=== PATIENT | female | born 1975 | race African-American/Black ===

== ENCOUNTER 2022-10-30 15:53 | Emergency (ER) | payer BC ==
[2022-10-30] MEDS ORDERED: Ketorolac Tromethamine 60 MG/2 ML VIAL ONE (16:09)
== END 2022-10-30 16:56 | disposition home or self-care (01) ==
LOC: BURERS 15:53
DX: M43.6 Torticollis (principal); E11.9 Type 2 diabetes mellitus without complications
CPT/HCPCS: 72125; 96372; J1885

== ENCOUNTER 2023-07-28 19:03 | Emergency (ER) | payer BC ==
[2023-07-28] MEDS ORDERED: Promethazine HCl 25 MG/ML VIAL ONE (19:45)
[2023-07-28 20:05] LABS: ALT (SGPT) 14 U/L (8-55); AST (SGOT) 20 U/L (5-34); Albumin 3.9 g/dL (3.5-5.0); Alkaline Phosphatase 72 U/L (40-110); Anion Gap 20 mmol/L (10-20); BUN (Urea Nitrogen) 5 mg/dL (7.0-18.7); Bilirubin, Total 0.4 mg/dL (0.2-1.2); Calc. Creatinine Clearance 0 mL/min (70-130); Calcium 8.8 mg/dL (7.8-10.44); Carbon Dioxide 17 mmol/L (22-29); Chloride 104 mmol/L (98-107); Estimated GFR 107; Globulin 3.5 g/dL (2.4-3.5); Glucose 80 mg/dL (70-105); Protein, Total 7.4 g/dL (6.0-8.3); Sodium 136 mmol/L (136-145)
== END 2023-07-28 20:50 | disposition home or self-care (01) ==
LOC: BURERS 19:03
DX: R11.2 Nausea with vomiting, unspecified (principal); R19.7 Diarrhea, unspecified; E11.9 Type 2 diabetes mellitus without complications
CPT/HCPCS: 80053; 96365; J2550

== ENCOUNTER 2023-09-27 20:45 | Emergency (ER) | payer BC ==
[2023-09-27] MEDS ORDERED: AMOXicillin 250 MG CAP ONE (21:12)
[2023-09-27] MEDS ORDERED: Ketorolac Tromethamine 30 MG (1 mL) VIAL ONE (21:12)
== END 2023-09-27 21:23 | disposition home or self-care (01) ==
LOC: BURERS 20:45
DX: K04.7 Periapical abscess without sinus (principal); K02.9 Dental caries, unspecified; E11.9 Type 2 diabetes mellitus without complications
CPT/HCPCS: 96372; 99282; J1885